=== PATIENT | female | born 1995 | race Caucasian/White ===

== ENCOUNTER 2017-06-02 09:28 | Emergency (ER) | payer OTHER ==
[~2017-06-02] VITALS: Ht 160 cm; Wt 56.5 kg
[~2017-06-02 09:28] MED LIST: ADVAIR 250-501 EACH IH; ADVAIR 250/501 DISK IH; Ambien PO; BENADRYL25 MG PO; ENDOCET 5-3251 EACH PO; FLAGYL500 MG PO; FLONASE16 G1 BOTH NARES; FLONASE16 GM NS; Flonase BOTH NARES; HYDROCODON-ACE1 EAC7 PO; LAMICTAL PO; LAMICTAL100 MG PO; LEVAQUIN750 MG PO; NATALCARE RX1 TABLE1 PO; SINGULAIR10 MG PO; Singulair Chewable PO; ZOFRAN ODT4 MG PO; ZYRTEC10 M2 PO; ZYRTEC10 M3 PO; ZyrTEC PO
[2017-06-02 12:14] VITALS: BP 110/68
== END 2017-06-02 12:15 | disposition home or self-care (01) ==
LOC: EME 09:28
DX: B34.9 Viral infection, unspecified (principal); J45.909 Unspecified asthma, uncomplicated; Z88.5 Allergy status to narcotic agent; Z88.2 Allergy status to sulfonamides; Z88.0 Allergy status to penicillin
CPT/HCPCS: 71046; 87651 90; 99281; 99283